=== PATIENT | male | born 1990 | race Caucasian/White ===

== ENCOUNTER 2021-09-01 17:06 | Emergency (ER) | payer BC ==
[2021-09-01 17:34] VITALS: BP 155/84; PULSE 96; RESP 20; TEMP 99.2
[2021-09-01 18:10] LABS: Appearance,Urine Clear (Clear); Bilirubin,Urine Negative (Negative); Blood,Urine Negative (Negative); Color,Urine Yellow; Glucose,Urine (UA) Negative (Negative); Ketones,Urine 2+ (Negative); Leukocyte Esterase,Urine Negative (Negative); Nitrite,Urine Negative (Negative); PH, Urine 5.5 (5.0-8.0); Protein,Urine Negative (Negative); Specific Gravity,Urine 1.029 (1.001-1.035); Urobilinogen,Urine <2.0 mg/dL (<2.0)
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
--- NOTE | 2021-09-01 19:15 | US ---
EXAMINATION TYPE: US scrotum with doppler. Grayscale and color Doppler Duplex imaging performed of lizbeth doshi scrotum. DATE OF EXAM: 09/01/2021 COMPARISON: NONE CLINICAL HISTORY: left testicular pain, swelling. Left testicular pain and swelling. Hx vasectomy 2 y ears ago. EXAM MEASUREMENTS: TESTICLES: Right Testicle: 4.2 x 2.4 x 2.1 cm Left Testicle: 3.9 x 2.6 x 2.1 cm -Hyperechoic focus seen within right testicle: 0.09 x 0.1 x 0.04 cm. EPIDIDYMIS HEAD: Right Epididymis: 0.8 x 0.9 x 1.2 cm Left Epididymis: 1.1 x 1.8 x 1.3 cm -Anechoic area seen within left epididymal head: 0.9 x 0.9 x 0.4 cm. Doppler performed to assess for testicular vascularity; bilateral color flow and waveforms are seen. Presence of hydroceles: Right: 1.5 x 0.5 x 0.4 cm. Complex fluid seen on the left: 3.7 x 2.7 x 1.2 c m. Presence of varicoceles: Vessels measure up to 0.17 cm on the right and 0.27 cm on the left. IMPRESSION: There are bilateral hydroceles. Fluid on the left side is slightly septated. No testicular torsion or mass. There is left epididymal cyst.
[2021-09-02 16:10] LABS: C. trachomatis,PCR Negative (Neg,Equiv); Chlamydia trachomatis Source Urine; N. gonorrhoeae,PCR Negative (Neg,Equiv); Neisseria Source Urine
== END 2021-09-01 19:45 | disposition home or self-care (01) ==
LOC: EC 17:06
DX: N43.3 Hydrocele, unspecified (principal); I86.1 Scrotal varices; N50.3 Cyst of epididymis; F12.90 Cannabis use, unspecified, uncomplicated
CPT/HCPCS: 76870; 81003; 87491; 87591; 93975; 99284